=== PATIENT | male | born 1975 | race Caucasian/White ===

== ENCOUNTER 2016-09-02 16:28 | Inpatient (IN) | payer OTHER ==
[~2016-09-02] VITALS: Ht 175.3 cm; Wt 85.2 kg
[~2016-09-02 16:28] MED LIST: ZYRT10CA PO
[2016-09-03] MEDS: LACTATED RINGER'S 1000 ML IV SCH (08:30)
[2016-09-03 08:42] VITALS: BP 131/86; PULSE 72; RESP 16; TEMP 97.3; O2SAT 97
[2016-09-03] MEDS ORDERED: ONDANSETRON HCL 4 MG/2 ML VIAL IV PUSH ONE (09:25)
[2016-09-03] MEDS ORDERED: LACTATED RINGER'S 1000 ML INJ 2,000 ML IV ONE (09:25)
[2016-09-03] MEDS ORDERED: PROPOFOL 200 MG/20 ML AMP IV ONE (09:25)
[2016-09-03] MEDS ORDERED: NEOSTIGMINE 3 MG/3 ML SYR IV ONE (09:25)
[2016-09-03] MEDS ORDERED: SODIUM CHLORID 0.9% 500 ML IV SCH (09:30)
[2016-09-03] MEDS ORDERED: INSULIN HUMAN REGULAR 1,000 UNITS/10 ML VIAL SQ PRN (09:30)
[2016-09-03] MEDS ORDERED: METOPROLOL TARTRATE 25 MG TAB PO PRN (09:30)
[2016-09-03] MEDS ORDERED: ACETAMINOPHEN 1000 MG/100 ML VIAL IV ONE (12:26)
[2016-09-03] MEDS ORDERED: FAMOTIDINE 20 MG/2 ML VIAL ONE (12:26)
[2016-09-03] MEDS ORDERED: MIDAZOLAM HCL 2 MG/2 ML VIAL ONE ×2 (12:26→16:45)
[2016-09-03] MEDS ORDERED: ARTIFICIAL TEARS OPTH OINT 3.5 APPLIC/3.5 GM TUBO ONE (12:27)
[2016-09-03] MEDS ORDERED: fentaNYL CITRATE 250 MCG/5 ML AMP ONE ×2 (12:27→16:44)
[2016-09-03] MEDS ORDERED: KETAMINE HCL 500 MG/5 ML VIAL ONE (12:28)
[2016-09-03] MEDS ORDERED: VANCOMYCIN HCL 1000 MG VIAL ONE (14:22)
[2016-09-03] MEDS ORDERED: ceFAZolin 2 GM PREMIX 50 ML ONE (14:23)
[2016-09-03] MEDS ORDERED: SODIUM CHLOR 0.9% 250 ML INJ 250 ML ONE (14:23)
[2016-09-03] MEDS ORDERED: THROMBIN (TOPICAL) 5,000 UNIT VIAL ONE (14:23)
[2016-09-03] MEDS ORDERED: GENTAMICIN SULFATE 80 MG/2 ML VIAL ONE (14:23)
[2016-09-03] MEDS ORDERED: GELFOAM SIZE 100 ONE (14:23)
[2016-09-03] MEDS ORDERED: [UNRECOGNIZED DRUG - REMARK] PO PRN (16:30)
[2016-09-03] MEDS ORDERED: SODIUM CHLORIDE 0.9% FLUSH 5 ML FLUSH IVF PRN (16:30)
[2016-09-03] MEDS ORDERED: MORPHINE SULFATE 4 MG/ML INJ IV PUSH PRN ×2 (16:30)
[2016-09-03] MEDS ORDERED: NALOXONE HCL 0.4 MG/ML AMP IV PRN (16:30)
[2016-09-03] MEDS ORDERED: HYDROmorphone HCL PCA 6 MG/30 ML IV SCH (16:30)
[2016-09-03] MEDS ORDERED: ACETAMINOPHEN 325 MG TAB PO PRN (16:30)
[2016-09-03] MEDS ORDERED: diphenhydrAMINE HCL 50 MG/ML VIAL IV PRN (16:30)
[2016-09-03] MEDS ORDERED: DO NOT ADM ANY ANTICOAGULANT DRUGS XX PRN (16:32)
[2016-09-03] MEDS ORDERED: *MEPERIDINE 25 MG INJ VIAL PERIprocedural Use ONLY ONE (16:34)
[2016-09-03] MEDS: NS + KCL 20 MEQ INJ 1,000 ML IV SCH (17:00)
--- NOTE | 2016-09-03 17:28 | RADRPT ---
EXAM DATE/TIME: 09/03/2016 13:41 [place] COMPARISON: No previous studies available for comparison. INDICATIONS : Fusion L4,L5 with screws and rods placement. MEDICAL HISTORY : None. SURGICAL HISTORY : None. ENCOUNTER: Initial ACUITY: 1 day PAIN SCORE: Non-responsive. LOCATION: Lumbar spine. FINDINGS: The patient is status post transpedicular fixation at L4-5 with NeoDisc and transpedicular fixation. Alignment is anatomic. CONCLUSION: Anatomic alignment. Newton Silvestre MD FACR on September 03, 2016 at 17:22 Board Certified Radiologist. This report was verified electronically.
[2016-09-03 19:00] VITALS: BP 117/79; PULSE 77; RESP 17; TEMP 97.3; O2SAT 97
[2016-09-03] MEDS: ceFAZolin 2 GM PREMIX 50 ML IV SCH (21:29)
[2016-09-03] MEDS: SODIUM CHLORIDE 0.9% FLUSH 5 ML FLUSH IVF SCH (21:29)
[2016-09-03] MEDS: PCA - TOTAL MG DILAUDID DELIVERED PER SHIFT SCH (21:29)
[2016-09-03 23:46] VITALS: BP 127/78; PULSE 80; RESP 17; TEMP 97.4; O2SAT 97
[2016-09-04] MEDS: NS + KCL 20 MEQ INJ 1,000 ML IV SCH (03:00)
[2016-09-04 04:40] VITALS: BP 121/78; PULSE 68; RESP 16; TEMP 98.4; O2SAT 96
[2016-09-04] MEDS: PCA - TOTAL MG DILAUDID DELIVERED PER SHIFT SCH (06:00)
[2016-09-04] MEDS: ceFAZolin 2 GM PREMIX 50 ML IV SCH (06:08)
[2016-09-04 06:54] LABS: AUTOMATED NEUTROPHIL # 14.2 TH/MM3 (1.8-7.7); BASOPHIL % 0.1 % (0.0-2.0); HEMATOCRIT 40.6 % (39.0-51.0); HEMO FLAGS DIFF FINAL; LYMPH % 12.7 % (9.0-44.0); LYMPHOCYTE # 2.2 TH/MM3 (1.0-4.8); MEAN CELL VOLUME 87.9 FL (80.0-100.0); MEAN CORPUSCULAR HEMOGLOBIN 30.6 PG (27.0-34.0); MEAN CORPUSCULAR HGB CONC 34.9 % (32.0-36.0); MONO % 6.5 % (0.0-8.0); NEUT % 80.7 % (16.0-70.0); PLATELET COUNT 239 TH/MM3 (150-450); RED BLOOD COUNT 4.62 MIL/MM3 (4.50-5.90); RED CELL DISTRIBUTION WIDTH 13.1 % (11.6-17.2); WHITE BLOOD COUNT 17.6 TH/MM3 (4.0-11.0)
[2016-09-04 07:06] LABS: BICARBONATE 25.2 MEQ/L (21.0-32.0); POTASSIUM 3.9 MEQ/L (3.5-5.1)
[2016-09-04] MEDS ORDERED: CYCLOBENZAPRINE HCL 10 MG TAB PO SCH (07:15)
[2016-09-04] MEDS ORDERED: oxyCODONE/ACETAMINOPHEN 7.5 MG/325 MG TAB PO PRN (07:15)
[2016-09-04 08:00] VITALS: BP 114/66; PULSE 75; RESP 18; TEMP 95.8; O2SAT 97
[2016-09-04 08:38] VITALS: O2SAT 98
[2016-09-04] MEDS ORDERED: PANTOPRAZOLE SODIUM 40 MG VIAL IVP SCH (09:00)
[2016-09-04] MEDS ORDERED: DOCUSATE SODIUM 100 MG CAP PO SCH (09:00)
[2016-09-04] MEDS: SODIUM CHLORIDE 0.9% FLUSH 5 ML FLUSH IVF SCH (09:21)
[2016-09-04] MEDS: LACTATED RINGER'S 1000 ML IV SCH (09:30)
--- NOTE | 2016-09-04 11:20 | PD.OP ---
Operative Report Date of Surgery: Sep 03, 2016 Preoperative Diagnosis: L4-5 spondylolisthesis Postoperative Diagnosis: L4-5 spondylolisthesis Procedure: L4-5 laminectomy, interbody arthrodhesis using PEEK cage and autologous bone graft, L4-5 instrumental fixation using transpedicular screws and rods, L4-5 posterolateral fusion using autologous bone graft and rods. Microsurgical dissection Anesthesia: general Surgeon: Reinier Elise Sap Specialist(s): alfonzo rose Operation and Findings: INDICATIONS FOR THE SURGICAL PROCEDURE Mr Cox is a 41 year-old with history of a prior L4-5 laminectomy and discectomy who presented with intractable mechanical back pain and venus evidence of L5 lower extremity radiculopathy. He developed spondylolisthesis. He failed maximum nonsurgical management including multiple modalities of conservative treatment as well as pain management interventions by an interventional pain specialist. A surgical decompression and arthrodhesis were indicated as a last resort. The [id number] details of the procedure, indications, alternatives, risks and potential complications were fully discussed with the patient. The patient fully understood. All the questions were answered. No guarantees were given. The patient voiced requesting the procedure and provided informed consents. The patient was offered the alternative of delaying the procedure and continuing with nonsurgical management. DETAILS OF THE SURGICAL PROCEDURE Prior to the procedure, the surgical incision was marked in the preoperative surgical holding room, and the procedure, risks, and potential complications revisited with the patient. Placement of electrodes for intraoperative neurophysiological monitoring was completed. The patient was taken to the operative room, and following induction of general anesthesia, endotracheal intubation was performed. A Pepe catheter, bilateral MARCELINO hose and sequential compression devices were placed and kept throughout the procedure. The patient was positioned prone, over a Og table over a Pedrito frame. All pressure in the preoperative surgical holding room points were carefully padded with eggcrate and gel mattress. The eyes were tapped shut after ointment was applied by the anesthesiologist to prevent corneal abrasion. A Sarkis hugger was placed over the exposed lower body to maintain control of the core body temperature. The electrophysiological team placed the needles and electrodes in their proper location and baseline SSEP's and motor evoked potentials were registered prior and following the positioning. The entrance to each pedicles was marked using a C arm. The lumbar region was prepped and draped in the usual sterile fashion. The surgical procedure was performed in several steps as follow: SURGICAL APPROACH Once the patient was positioned, a localizing cross-table lateral x-ray was performed with a C-arm. Two paramedian small incisions were outlined on the skin approximately 3cm from the midline. The skin incisions were made with a # 10 blade. Small bleeders were controlled with the cautery. The dissection was then carried out into deper planes and through the thoracolumbar fascia with a Bovie. The intermuscular septum was identified and the muscles were blunted dissected along the septum. The facets and transverse process of L4, L5 and S1 were exposed and the proper anatomical landmarks were identified. A microsurgical self-retaining retractor was placed on the incision, and a localizing lateralizing cross-table x-ray was performed with an instrument underneath a lamina of the lumbar spine. There was a bilateral pars defect with gross instability of the bony structures. INSTRUMENTAL FIXATION At this point in the procedure, placement of bilateral transpedicular screws was necessary for stabilization of the spine. Initially, the entry point for the screw was selected anatomically at the junction of the facet, with the transverse process, and the pars interarticularis at L5 and at the sacrum. This was started with a Giamshetti needle, followed by the use of an chance wire, and then a tap was used to create the threads for the screws. Finally bilateral transpedicular screws were carefully placed bilaterally at L4, L5 under fluoroscopic visualization. An appropriate purchase was achieved with all screws. The position of each screw was assessed anatomically with an AP, lateral , oblique Xrays. An intraoperative scan view of the spine was then performed using the iso-centric c-arm. Each screw was then assessed electrophysiologically with a nerve stimulator. SURGICAL DECOMPRESSION There was significant mass effect with compression of the neural structures. In order to relieve neural compression, it was necessary to perform a decompressive laminectomy, with decompression of the spinal canal and bilateral lateral recesses. Note that the scope of such decompression was significantly more extensive than the minimal exposure necessary to perform an interbody fusion, as there was extreme facet arthropathy with near complete collapse of the disk spaces and severe stenosis cause by the hyperthrophic joint facets. At this point of the procedure the operative microscope was draped in the usual sterile fashion and brought to the field. The rest of the surgical procedure was performed using microdissection technique with the exception of the closure. Under the operating microscope, a decompressive laminectomy was carried out at L4-5 as follow: The laminae, base of the spinous processes and facets were carefully drilled exposing the ligamentum flavum. The facets were abnormal with severe facet arthropathy, vacuum facets, and mass effect over the neural structures. A broad disk protusion was contributing to compression of the neural structures and exiting L5, and S1 nerve roots. A near complete facetectomy was necessary resulting in further mechanical instability. The ligamentum flavum appeared hypertrophic, resulting on mass effect on the dorsal surface of the neural structures. The superior free border of the ligamentum flavum was elevated with a ligament dissector and the ligamentum flavum was removed with a 3 and 4 mm Kerrison forceps. The ligament was very adherent to the dural sac and during the dissection, ans extreme care was taken during the dissection. The exiting nerve roots were identified, and a wide foraminotomy was performed with a Kerrison in their trajectory towards the neural foramenat both levels. Epidural veins located laterally to the dural sac were coagulated with the bipolar cautery, and then incised using microscissors. Gentle medial retraction of the dural sac allowed me to expose the disc space for the discectomy. Upon completion of the discectomy, an excellent decompression of the neural structures was achieved. INTERBODY ARTHRODHESIS In order to correct the narrowing of the disk space and maintain distraction of the space, and to achieve a solid interbody fusion, it was necessary the insertion of an interbody device into the disk space. Otherwise, the disk space would collapse, compromising the result of the surgical procedure. At this point of the procedure, the annulus fibrosus of the disk was carefully coagulated with a bipolar cautery and incised using an 11 bladed knife. Then, a microdiscectomy was carried out in a standard fashion using a combination of straight and up-biting pituitary forceps. A reverse angle curette was applied underneath the posterior longitudinal ligament, and used to push the disk fragments into the disk space, so they can be safely removed with a pituitary forceps. Once the discectomy was completed, it was necessary to decorticate the endplates, in order to eliminate the cartilaginous endplate and to expose healthy bone appropriate to perform the interbody fusion. The endplates at L4-5 , and L5-S1 were then thoroughly decorticated using increasing size bone sameera and ring curets, eliminating the cartilaginous fragments from both, the superior and inferior endplates. A disk space distractor was applied to the pedicle screws and gentle distraction was applied. This maneuver was assisted by the use of a disk distractor. Once a thorough preparation of the disk space was achieved, the disk space was irrigated with antibiotic solution, and the interbody fusion was performed by carefully impacting expandable PPEK cages filled with autologous iliac crest bone graft. The cages were properly deployed and thereafter packed with further bone graft by the use of a funnel. A solid position of the cage with good purchase was achieved at both levels. The position of the cages were assessed anatomically with a probe and radiologically with the C-arm. POSTEROLATERAL FUSION The posterolateral fusion is a critical component to the procedure, to prevent future fatigue and failure of the instrumental fixation. Initially, the transverse processes of the vertebral bodies, lateral surface of the facets and the lateral gutters of the spine were carefully cleaned, eliminating all soft tissue and muscle attachments. The area was then irrigated with a large amount of antibiotic solution. Subsequently, the transverse processes, lateral surface of the facets, and lateral gutters of the spine were thoroughly decorticated using the TPS drill with a 5mm cutting clement, exposing cancellous bone, in preparation for the posterolateral fusion. The incision was again irrigated with antibiotic solution. Then, the posterolateral fusion was then performed by carefully packing the lateral gutters of the spine at L4-5 with autologous iliac crest bone combined with demineralized bone matrix. I packed as much bone as possible. COMPLETION OF THE INSTRUMENTATION AND CLOSURE The rods were brought to the field, applied to all the screws, and the screw caps were sequentially applied. Compression was performed between the pedicle screws, and final tightening of the screws was completed using a torque wrench The incision was again thoroughly irrigated with several liters of antibiotic solution, and hemostasis secured with the bipolar cautery. A Valsalva Maneuver performed by the anesthesiologist failed to show any evidence of cerebrospinal fluid leak or bleeding. A 7 mm Og-Schneider drain was left in the epidural space and externalized through a separate stab incision. The incision was then closed in planes. 0 Vicryl was used in an interrupted fashion to close the thoracolumbar fascia and the superficial fascia. The subcutaneous tissue was then approximated using 3-0 Vicryl in an interrupted fashion. Special care was taken to avoid space. The skin was then closed with 4-0 Vicryl in a running, subcuticular fashion. Dermabond was applied to the skin. Each plane of closure was irrigated with antibiotic solution. At the end of the procedure the sponge, needle and instrument counts were all correct. Estimated blood loss was 100 cc or less. No blood transfusion was given. The entire procedure was performed using continuous electrophysiological monitoring of the somatosensorial evoked potentials and EMG. The patient received prophylactic antibiotics. The patient was then extubated and transferred to the recovery room in stable condition. Reinier Elise MD Sep 04, 2016 11:20
[2016-09-04] MEDS ORDERED: TRAM50TA PO (11:57)
[2016-09-04] MEDS ORDERED: CYCL1TAB29 PO (11:57)
--- NOTE | 2016-09-07 09:22 | HHI.DS ---
Discharge Summary Admission Date Sep 03, 2016 at 07:36 Discharge Date: Sep 04, 2016 Admitting Diagnosis s/p lumbar fusion (1) Status post lumbar spinal fusion ICD Code: Z98.1 Brief History Mr Cox is a 41 year-old with history of a prior L4-5 laminectomy and discectomy who presented with intractable mechanical back pain and venus evidence of L5 lower extremity radiculopathy. He developed spondylolisthesis. He failed maximum nonsurgical management including multiple modalities of conservative treatment as well as pain management interventions by an interventional pain specialist. A surgical decompression and arthrodesis were indicated as a last resort. CBC/BMP: 09/04/16 0554 09/04/16 0554 Imaging Last Impressions Lumbar Spine X-Ray 09/03/16 0000 Signed Impressions: Service Date/Time: Saturday, September 03, 2016 13:41 - CONCLUSION: Anatomic alignment. Newton Silvestre MD [facility] Mr. Cox is a 41 year old male who underwent a L4-5 laminectomy, interbody arthrodesis using PEEK cage and autologous bone graft, L4-5 instrumental fixation using transpedicular screws and rods, L4-5 posterolateral fusion using autologous bone graft and rods. Microsurgical dissection on Sep 03, 2016. He was discharged home the following day. Pt Condition on Discharge: Stable Discharge Disposition: Discharge Home Discharge Instructions DIET: Follow Instructions for: As Tolerated, No Restrictions ACTIVITIES You can perform: Weight Bearing As [place] Activities to Avoid: Driving ADDITIONAL Activity Instructio: Wear your brace when out of bed. Follow up Referrals: Neurosurgery - 1 Week @ Neurosurgical - Dr Elise New Medications: Tramadol (Tramadol) 50 Mg Tab 50 MG PO Q4H PRN PAIN #50 Ref 0 TAB Cyclobenzaprine (Flexeril) 10 Mg Tab 10 MG PO Q8HR PRN muscle spasms #90 Ref 2 TAB Continued Medications: Cetirizine (Zyrtec Allergy) Unknown Strength Cap 10 MG PO DAILY PRN ALLERGIES Ref 0 CAP Perlita Giordano Sep 07, 2016 09:22
== END 2016-09-04 13:10 | disposition home or self-care (01) | DRG 460 ==
LOC: HSDI 09-03 07:36 → N06B 09-03 18:18
PROVIDERS: ADMIT Neurological Surgery; ATTEND Neurological Surgery
PROC: 0SB20ZZ Excision of Lumbar Vertebral Disc, Open Approach (ICD-10-PCS; 2016-09-03)
PROC: 0SG30A1 (ICD-10-PCS; 2016-09-03)
PROC: 0QB30ZZ Excision of Left Pelvic Bone, Open Approach (ICD-10-PCS; 2016-09-03)
PROC: 0SG00A1 (ICD-10-PCS; principal; 2016-09-03 12:31)
DX: M51.16 Intervertebral disc disorders with radiculopathy, lumbar region (principal); F17.210 Nicotine dependence, cigarettes, uncomplicated; M43.16 Spondylolisthesis, lumbar region; Z88.0 Allergy status to penicillin
CPT/HCPCS: 72100; 76000; 80048; 85025; 86850; 86900; 86901; 94150; C1713; C9113; J0131; J0690; J1170; J1580; J2175; J2250; J2405; J2710; J3010; J3370; J3480; J7050; J7120; L0200; L0484